=== PATIENT | male | born 1950 | race Caucasian/White ===

== ENCOUNTER 2018-02-19 16:20 | Emergency (ER) | payer MEDICARE, SELFPAY ==
[2018-02-19 16:22] VITALS: BP 150/69; PULSE 87; RESP 17; TEMP 36.9; O2SAT 98; BMI 29.9
--- NOTE | 2018-02-19 16:47 | RAD_ITS ---
STUDY: X-RAY - LUMBAR SPINE REASON FOR EXAM: Male, 67 years old. Back pain. TECHNIQUE: A single frontal view(s) of the lumbar spine were obtained. Patient was unable to finish the remainder of the imaging. COMPARISON: None FINDINGS: There is mild generalized osteopenia. Normal lumbar lordosis. There is no substantial scoliosis. There is a normal alignment of the vertebrae. Normal vertebral bodies and endplates. There is intervertebral disc space narrowing diffusely, most marked at L2-3 on this frontal view. The soft tissue structures are unremarkable. RAD/Lumbar Spine 2 or 3 Views IMPRESSION: Osteopenia with lumbar spondylosis as described. Extremely limited study. Patient should have the remainder of the study performed when possible. Electronically Signed: Edil Mcdaniels MD at 18:03 EDT , Service support ,
--- NOTE | 2018-02-19 16:51 | ED.DCSUM_ITS ---
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 he was on for about 3 hours when he got off of it he noticed the pain to his left hip that radiated down laterally to the lateral malleolus left ankle, the patient's symptoms persisted and he came in for evaluation today. He did not fall strike his body or injure himself anyway he indicates his cardiovascular status has been stable he has had no fever no cough no chest pain or anginal type symptoms normal bowel bladder habits. Indicates his symptoms are worse when he moves at the hip or stands to bear weight better when he rests, his gout usually affects his toes and has been stable he has no history of lumbar back or hip ailment Physical Examination: [] Resting comfortably in the bed he is in no distress his lungs he remains still any type of movement of the hip causes him to have pain in the hip that radiates laterally down to the lateral knee and lateral ankle. He is able to fully extend and flex at the hips the knee dorsi and plantarflex at the ankle, he has strong dorsalis pedis pulses bilaterally. He has full range of motion of the left lower extremity while in the bed when he is asked to stand and walk when he weight bears complains of pain in the hip shooting down to his leg as above the lumbar back has minimal tenderness the right lower extremity and upper extremities are unremarkable abdomen soft and nontender pulses are symmetric bilaterally neurologically is awake alert as above no findings neurologically no signs of cauda equina he denies bowel or bladder complaints, I should mention his lower extremity exam shows no signs of gout swelling edema DVT inflammation or infection no skin lesions he does have a small scratch over the top of his left foot from his dog but there is no signs of infection Also when he is in the bed he has near full range of motion of the right and left lower extremity he denies perineal anesthesia he has no focal weakness as he has full range of motion to the left lower extremity to the hip knee ankle foot dorsi and plantar flexion ,stands that he complains of discomfort Test Results: [] X-ray morphine Toradol Emergency Department Course and Treatment: [] The patient was sent to radiology for lumbar spine and left hip x-rays he indicated he could not position himself or move his hip to the appropriate position so that full hip series could be done he then also would not position himself so a full lumbar spine series would be done, so he was sent for left hip CT The left hip CT showed no acute gross abnormalities of the left hip but moderate to severe DJD and disc disease involving a number of levels no signs of acute central disc see those reports on reevaluation he is resting comforting the bed I explained all the above to him that this process might be related to his back versus an unspecified condition related to the hip, at this time he understands need for follow-up he will be fitted with crutches he is to rest 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 , Naprosyn Stanton for pain and is to return for change in symptoms and see his family doctor for further management I further cautioned him as a prudent precaution regarding any signs or symptoms related to cauda equina should they develop he will return Treatment Plan: [] Disposition: [] Stable home Impression: [] Left hip and lower extremity pain suspect related to lumbar spine DJD and radicular symptoms This note was generated with [employer] dictation software. It may contain incorrect words, spelling, and punctuation that were not noted in review of the chart prior to signing ED Disposition - Plan for ED Patient: Chief Complaint: Lower Extremity Injury Referrals: Augustin Nguyen MD [Primary Care Provider] -
[2018-02-19] MEDS: Ondansetron ODT 4 MG Tablet PO (16:57)
[2018-02-19] MEDS: Ketorolac 60 MG/2 ML Vial IM (16:58)
[2018-02-19] MEDS: morphine 8 MG/ML Syringe SC (17:00)
--- NOTE | 2018-02-19 17:10 | RAD_ITS ---
STUDY: X-RAY - PELVIS AND LEFT HIP REASON FOR EXAM: Male, 67 years old. Pain. TECHNIQUE: Radiological exam, hip, unilateral, with pelvis when performed; 1 view COMPARISON: None. FINDINGS: There is a non-specific bowel gas pattern. Normal visualized soft tissue structures. Normal bilateral iliac wings, sacroiliac joints and visualized sacrum. Normal bilateral superior and inferior pubic rami. Normal pubic symphysis. Normal bilateral ischial tuberosities. Normal visualized femoral head. Normal acetabulum. Normal hip joint. RAD/Hip 1 view with Pelvis IMPRESSION: No significant abnormality identified on this limited one view examination. Electronically Signed: Edil Mcdaniels MD at 18:07 EDT , Service support ,
--- NOTE | 2018-02-19 18:08 | CT_ITS ---
STUDY: CT PELVIS WITHOUT CONTRAST REASON FOR EXAM: Male, 67 years old. Left hip pain, 4 days RADIATION DOSAGE (If Supplied By Facility): CTDIvol = ( 26.70 ) mGy, DLP = ( 926.90 ) mGycm TECHNIQUE: Transaxial imaging of the pelvis was performed with oral contrast, and without intravenous administration of contrast material. Coronal and sagittal 2-D MPR Individualized dose optimization techniques were used for this CT. COMPARISON: Lumbar spine series and hip series 02/19/2018. FINDINGS: Intrapelvic: No acute abnormality of the evaluated portions of the bowel, mesentery, retroperitoneum, vasculature, urinary bladder, seminal vesicles. Mild prostatomegaly. Sigmoid diverticulosis without diverticulitis. Mild atherosclerosis. Body wall soft tissues: Ventral infraumbilical midline incision, healed. No acute body wall process. Pelvic myotendinous girdle appears normal. Lumbar spine: Moderately severe disc narrowing with dissection changes and endplate degenerative changes at L5-S1 with disc bulge and posterior disc margin osteophytic spurring contributing to moderate left and mild right foraminal stenosis. Mild disc narrowing and disc bulging at L4-L5 and L3-L4 contributes to mild foraminal narrowing. Sacrum: Normal sacrum with minimal degenerative features of the SI joints. Right hemipelvis and hip: Normal. Left hemipelvis and hip: Osseous structures are intact. The hip joint is normal. The proximal femur is unremarkable. There is no effusion and surrounding myotendinous structures appear normal. CT/Pelvis without IV Contrast IMPRESSION: Normal unenhanced CT of the pelvis. No apparent abnormality of the left hip. Electronically Signed: Chema Salomon, at 19:36 EDT Tel , Service support ,
--- NOTE | 2018-02-19 19:59 | ED.DEP ---
ED Disposition - Plan for ED Patient: Chief Complaint: Lower Extremity Injury Instructions: ED Contusion Hip, ED Sciatica Prescriptions: Hydrocodone Bitart/Apap 5-325 [[place] 5MG-325MG] 1 tab PO Q6H PRN PRN 3 Days #10 tab PRN Reason: Pain Naproxen [Naprosyn] 500 mg PO BID PRN #20 tab Referrals: Augustin Nguyen MD [Primary Care Provider] -
--- NOTE | 2018-02-19 20:02 | DCINST.ED_ITS ---
ED Disposition - Plan for ED Patient: Chief Complaint: Lower Extremity Injury Instructions: ED Contusion Hip, ED Sciatica Prescriptions: Hydrocodone Bitart/Apap 5-325 [[place] 5MG-325MG] 1 tab PO Q6H PRN PRN 3 Days #10 tab PRN Reason: Pain Naproxen [Naprosyn] 500 mg PO BID PRN #20 tab Referrals: Augustin Nguyen MD [Primary Care Provider] -
[2018-02-19 20:48] VITALS: BP 128/87; PULSE 67; RESP 18; O2SAT 99
== END 2018-02-19 20:49 | disposition home or self-care (01) ==
PROVIDERS: Emergency Provider Emergency Medicine; Family Provider Family Medicine; PCP Family Medicine
DX: M25.552 Pain in left hip (principal); M79.605 Pain in left leg; M10.9 Gout, unspecified; M16.12 Unilateral primary osteoarthritis, left hip; M51.9 Unspecified thoracic, thoracolumbar and lumbosacral intervertebral disc disorder; Z95.5 Presence of coronary angioplasty implant and graft
CPT/HCPCS: 72100; 72192; 73501; 73502; 96372; 99283